=== PATIENT | male | born 1990 | race Asian ===

== ENCOUNTER 2018-11-06 13:41 | Emergency (ER) | payer OTHER ==
[~2018-11-06] VITALS: Ht 167.6 cm; Wt 81.8 kg
[2018-11-06] MEDS ORDERED: PROZ20CA11 PO (13:51)
[2018-11-06] MEDS ORDERED: TRAZ-163 PO (13:51)
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
[2018-11-06] MEDS ORDERED: CYCL10TA PO (15:49)
[2018-11-06] MEDS ORDERED: IBUP-1022 PO (15:49)
[2018-11-06 15:50] VITALS: BP 135/93
== END 2018-11-06 15:59 | disposition home or self-care (01) ==
LOC: M ED 13:41
DX: T14.8XXA Other injury of unspecified body region, initial encounter (principal); V43.52XA Car driver injured in collision with other type car in traffic accident, initial encounter; Y92.410 Unspecified street and highway as the place of occurrence of the external cause; Z79.899 Other long term (current) drug therapy

== ENCOUNTER 2019-04-16 23:50 | Emergency (ER) | payer OTHER ==
[~2019-04-16] VITALS: Ht 165.1 cm; Wt 81.8 kg
[~2019-04-16 23:50] MED LIST: CYCL10TA PO; IBUP-1022 PO; PROZ20CA11 PO; TRAZ-163 PO
[2019-04-17 00:35] LABS: HEMATOCRIT 45.4 % (42.0-52.0); HEMOGLOBIN 14.9 g/dl (13.5-17.5); MEAN CORPUSCULAR HEMOGLOBIN 29.9 pg (27.0-33.0); MEAN CORPUSCULAR HGB CONC 32.8 g/dl (32.0-36.5); MEAN CORPUSCULAR VOLUME 91.2 fl (80.0-96.0); PLATELET COUNT, AUTOMATED 225 10^3/uL (150-450); RED BLOOD COUNT 4.98 10^6/uL (4.30-6.10); WHITE BLOOD COUNT 8.3 10^3/uL (4.0-10.0)
[2019-04-17 00:41] LABS: ACETAMINOPHEN LEVEL < 2.0 UG/ML (10.0-30.0); ALBUMIN 3.9 GM/DL (3.2-5.2); ALT/SGPT 38 U/L (12-78); BILIRUBIN,DIRECT < 0.1 MG/DL (0.0-0.2); BILIRUBIN,TOTAL 0.1 MG/DL (0.2-1.0); BLOOD UREA NITROGEN 24 MG/DL (7-18); CALCIUM LEVEL 8.5 MG/DL (8.5-10.1); CARBON DIOXIDE LEVEL 24 MEQ/L (21-32); CHLORIDE LEVEL 111 MEQ/L (98-107); CREATININE FOR GFR 0.84 MG/DL (0.70-1.30); ETHYL ALCOHOL (ETHANOL) 0.216 % (0.000-0.010); GLOMERULAR FILTRATION RATE > 60.0 (>60); GLUCOSE, FASTING 91 MG/DL (70-100); POTASSIUM SERUM 3.6 MEQ/L (3.5-5.1); SALICYLATE LEVEL < 1.7 MG/DL (5.0-30.0); SODIUM LEVEL 145 MEQ/L (136-145); TOTAL PROTEIN 7.1 GM/DL (6.4-8.2)
[2019-04-17 00:42] LABS: AMPHETAMINES LEVEL URINE NEGATIVE (NEGATIVE); BARBITURATES URINE NEGATIVE (NEGATIVE); BENZODIAZEPINES URINE NEGATIVE (NEGATIVE); CANNABINOIDS URINE NEGATIVE (NEGATIVE); COCAINE METABOLITE URINE NEGATIVE (NEGATIVE); METHADONE URINE NEGATIVE (NEGATIVE); OPIATES URINE NEGATIVE (NEGATIVE); PHENCYCLIDINE URINE NEGATIVE (NEGATIVE)
[2019-04-17] MEDS ORDERED: NS 1,000 ML IV ONE (01:00)
[2019-04-17] MEDS ORDERED: AMBI10TA PO (11:59)
[2019-04-17] MEDS ORDERED: ZOLO25TA PO (11:59)
[2019-04-17] MEDS ORDERED: WELLTAB38 PO (11:59)
[2019-04-17 12:00] VITALS: BP 123/66
[2019-04-17] MEDS ORDERED: ACETAMINOPHEN 325 MG TAB PO ONE (12:45)
--- NOTE | 2019-04-17 15:38 | ECGEPIP ---
[facility] - ED Test Date: 2019-04-17 Pat Name: SANCHO POPE Department: Room: - Gender: Male [employer]: HAILEY : 1990 Requested By: WM LINARES Order Number: [id number] Reading MD: Juanis Bowser Measurements Intervals [place] Rate: 90 P: 41 NE: 157 QRS: 15 QRSD: 100 T: 15 QT: 355 QTc: 435 Interpretive Statements SINUS RHYTHM NSTTW abnormalities No prior Electronically Signed on 04-17-2019 15:38:39 EDT by Juanis Bowser
== END 2019-04-17 13:57 ==
LOC: M ED 23:50
DX: T50.992A Poisoning by other drugs, medicaments and biological substances, intentional self-harm, initial encounter (principal); X58.XXXA Exposure to other specified factors, initial encounter; Y92.89 Other specified places as the place of occurrence of the external cause; F10.229 Alcohol dependence with intoxication, unspecified; F33.9 Major depressive disorder, recurrent, unspecified; F41.9 Anxiety disorder, unspecified; Z79.899 Other long term (current) drug therapy
CPT/HCPCS: 36415; 80048; 80076; 80307; 84443; 85027; 93005; 99285; G0480